=== PATIENT | female | born 2005 | race Caucasian/White ===

== ENCOUNTER 2023-01-05 13:30 | Emergency (ER) | payer SELFPAY ==
[2023-01-05] MEDS ORDERED: Acetaminophen 500 MG Tab PO ONE (13:50)
[2023-01-05] MEDS ORDERED: Ondansetron 4 MG/2 ML SDV IVPUSH ONE (13:50)
[2023-01-05] MEDS ORDERED: Sodium Chloride 0.9% 1,000 ML IV ONE (13:50)
[2023-01-05 14:05] LABS: BASOPHILS ABSOLUTE AUTO 0.02 K/uL (0.00-0.30); BASOPHILS PERCENT AUTO 0.2 % (0.0-1.0); EOSINOPHILS ABSOLUTE AUTO 0.09 K/uL (0.00-0.70); EOSINOPHILS PERCENT AUTO 0.8 % (0.0-5.0); HEMATOCRIT 41.1 % (37.0-47.0); HEMOGLOBIN 14.6 g/dL (12.0-16.0); IMMATURE GRAN ABSOLUTE AUTO 0.05 K/uL (0.00-0.05); IMMATURE GRAN PERCENT AUTO 0.4 % (0.0-0.4); LYMPHOCYTES ABSOLUTE AUTO 1.35 K/uL (2.00-8.80); LYMPHOCYTES PERCENT AUTO 11.8 % (50.0-65.0); MEAN CORPUSCULAR HEMOGLOBIN 29.7 pg (28.0-32.0); MEAN CORPUSCULAR HGB CONC 35.5 g/dL (32.0-36.0); MEAN CORPUSCULAR VOLUME 83.7 fL (83.0-99.0); MEAN PLATELET VOLUME 10.8 fL (9.4-12.3); MONOCYTES ABSOLUTE AUTO 0.56 K/uL (0.10-1.40); MONOCYTES PERCENT AUTO 4.9 % (2.0-10.0); NEUTROPHILS ABSOLUTE AUTO 9.33 K/uL (1.50-8.50); NEUTROPHILS PERCENT AUTO 81.9 % (35.0-45.0); PLATELET COUNT,PLT 246 K/uL (150-400); RED BLOOD CELL COUNT 4.91 M/uL (4.10-5.30)
[2023-01-05 15:02] LABS: A/G RATIO 0.9 (0.9-1.6); ALBUMIN 3.3 g/dL (3.4-5.0); BILIRUBIN TOTAL 0.3 mg/dL (0.2-1.0); CALCIUM 8.8 mg/dL (8.5-10.1); CARBON DIOXIDE,CO2 23.1 mmol/L (21.0-32.0); CREATININE 0.6 mg/dL (0.6-1.0); EST CRCL DRUG DOSING (CG) 152.13 mL/min; MAGNESIUM 1.6 mg/dL (1.8-2.4); POTASSIUM,K 3.6 mmol/L (3.5-5.1)
== END 2023-01-05 17:24 | disposition home or self-care (01) ==
LOC: MW.ED 13:30
DX: O99.891 Other specified diseases and conditions complicating pregnancy (principal); R10.2 Pelvic and perineal pain; Z3A.11 11 weeks gestation of pregnancy
CPT/HCPCS: 36415; 76801; 80053; 83735; 84702; 85025; 96361; 96374; 99284; A9270; J2405; J7030